=== PATIENT | female | born 1955 | race Caucasian/White ===

== ENCOUNTER 2017-07-25 17:18 | Emergency (ER) | payer BC ==
[~2017-07-25] VITALS: Ht 165.1 cm; Wt 60.0 kg
[2017-07-25] MEDS ORDERED: IBUPROFEN 600MG TABLET PO ONE (18:45)
[2017-07-25 20:35] VITALS: BP 135/76
== END 2017-07-25 21:21 | disposition home or self-care (01) ==
LOC: ER 17:37
DX: S00.03XA Contusion of scalp, initial encounter (principal); S80.11XA Contusion of right lower leg, initial encounter; W10.8XXA Fall (on) (from) other stairs and steps, initial encounter; Y93.89 Activity, other specified; Y92.520 Airport as the place of occurrence of the external cause
CPT/HCPCS: 70450; 73590; 99284; A4217; Z7610